=== PATIENT | male | born 1955 | race Two or more races ===

== ENCOUNTER 2018-03-15 20:08 | Emergency (ER) | payer BC ==
[2018-03-15] MEDS: IPRATROPIUM (NEB) 0.5 MG/2.5 ML AMP NEB (22:27)
[2018-03-15] MEDS: ALBUTEROL 0.5% (NEB) 2.5 MG/0.5 ML AMP NEB (22:27)
[2018-03-16] MEDS: ALBUTEROL 0.083% (NEB) 2.5 MG/3 ML AMP NEB (00:20)
== END 2018-03-16 01:08 | disposition home or self-care (01) ==
LOC: FTE 03-16 01:08
DX: R05 Cough (principal); I10 Essential (primary) hypertension; E11.9 Type 2 diabetes mellitus without complications; J45.901 Unspecified asthma with (acute) exacerbation; Z79.84 Long term (current) use of oral hypoglycemic drugs; Z87.891 Personal history of nicotine dependence
CPT/HCPCS: 71045; 94644; 94664; 99284-25